=== PATIENT | male | born 2000 | race Asian ===

== ENCOUNTER 2024-04-12 14:04 | Emergency (ER) | payer OTHER, SELFPAY ==
[2024-04-12 14:05] VITALS: BP 126/71
[2024-04-12 14:07] VITALS: BP 126/71
[2024-04-12 14:22] VITALS: BMI 26.1
[2024-04-12 15:00] VITALS: BP 117/72
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
== END 2024-04-12 16:35 | disposition home or self-care (01) ==
LOC: EMR 14:04
PROVIDERS: EMERGENCY PHYSICIAN Emergency Medicine; FAMILY PHYSICIAN Family Medicine
DX: G40.909 Epilepsy, unspecified, not intractable, without status epilepticus (principal); V89.2XXA Person injured in unspecified motor-vehicle accident, traffic, initial encounter
CPT/HCPCS: 99282